=== PATIENT | female | born 1985 | race Caucasian/White ===

== ENCOUNTER 2017-01-01 16:18 | Emergency (ER) ==
[2017-01-01 16:24] VITALS: BP 151/77; TEMP 98.6; BMI 26.5
[2017-01-01] MEDS ORDERED: KEFLEX PO STA (17:11)
[2017-01-01] MEDS ORDERED: BACTROBAN TP STA (17:11)
[2017-01-01] MEDS ORDERED: DILAUDID 1 MG/ML SYRINGE IM STA (17:11)
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
== END 2017-01-01 18:25 | disposition home or self-care (01) ==
LOC: ED 16:18
DX: T24.202D Burn of second degree of unspecified site of left lower limb, except ankle and foot, subsequent encounter (principal); T24.201D Burn of second degree of unspecified site of right lower limb, except ankle and foot, subsequent encounter; T31.10 Burns involving 10-19% of body surface with 0% to 9% third degree burns; X08.8XXD Exposure to other specified smoke, fire and flames, subsequent encounter
CPT/HCPCS: 96372; 99283